=== PATIENT | male | born 1990 | race Caucasian/White ===

== ENCOUNTER 2018-02-14 19:38 | Emergency (ER) | payer SELFPAY ==
[2018-02-14 19:39] VITALS: BMI 28.7
[2018-02-14 19:45] VITALS: TEMP 99.4
[2018-02-14] MEDS ORDERED: Sodium Chloride 0.9% 1,000 ML IV STA (20:10)
--- NOTE | 2018-02-14 20:26 | ED PDOC ---
Arrival/HPI - General Chief Complaint: Flu-like Symptoms Time Seen by Provider: 02/14/18 19:50 Historian: Patient - History of Present Illness Narrative History of Present Illness (Text): 02/14/18 20:20 This is a 27 year old male with no PMH and on no medications presenting to the ER for one year of general malaise and body aches. He also admits to occasional chest palpitations, joint pain, headaches and sore throat that occur most prominently when it rains. He denies fevers, urinary complaints, chills, nausea , vomiting, abdominal pain, recent travel, recent sickness, vision loss and hearing loss. He states he had a negative workup for STD done two months ago. No PMD Symptom Onset: Gradual Symptom Course: Intermittent Activities at Onset: Light Context: Home Past Medical History - Provider Review Nursing Documentation Reviewed: Yes - Past History Past History: No Previous - Infectious Disease Hx of Infectious Diseases: None - Tetanus Immunization Tetanus Immunization: Up to Date - Past Medical History Past Medical History: No Previous - Psychiatric Hx Psychophysiologic Disorder: No Hx Substance Use: No - Past Surgical History Past Surgical History: No Previous Family/Social History - Physician Review Nursing Documentation Reviewed: Yes Family/Social History: Unknown Family HX Smoking Status: Never Smoked Hx Alcohol Use: No Hx Substance Use: No Hx Substance Use Treatment: No Allergies/Home Meds Allergies/Adverse Reactions: Allergies No Known Allergies Allergy (Verified 04/01/16 11:33) Review of Systems - Physician Review All systems were reviewed & negative as marked: Yes - Review of Systems Constitutional: Fatigue. absent: Weight Change, Fevers, Night Sweats Eyes: Normal. absent: Vision Changes ENT: Normal. absent: Hearing Changes Respiratory: Normal. absent: SOB Cardiovascular: Palpitations. absent: Edema, Syncope Gastrointestinal: Normal. absent: Abdominal Pain, Constipation, Diarrhea, Nausea, Vomiting Genitourinary Male: Normal. absent: Dysuria Musculoskeletal: Arthralgias. absent: Joint Swelling, Myalgias Skin: Normal. absent: Rash Neurological: Headache. absent: Dizziness, Focal Weakness, Speech Changes, Disequilibrium Psychiatric: Normal Physical Exam Vital Signs Reviewed: Yes Vital Signs Temp Pulse Resp BP Pulse Ox 02/14/18 22:24 88 18 122/72 100 02/14/18 19:41 99.4 F 94 H 16 118/64 98 Temperature: Afebrile Blood Pressure: Normal Pulse: Regular Respiratory Rate: Normal Appearance: Positive for: Well-Appearing, Non-Toxic, Comfortable Pain Distress: None Mental Status: Positive for: Alert and Oriented X 3 - Systems Exam Head: Present: Atraumatic, Normocephalic Pupils: Present: PERRL Extroacular Muscles: Present: EOMI Conjunctiva: Present: Normal Mouth: Present: Moist Mucous Membranes Neck: Present: Normal Range of Motion Respiratory/Chest: Present: Clear to Auscultation, Good Air Exchange. No: Respiratory Distress, Accessory Muscle Use Cardiovascular: Present: Regular Rate and Rhythm, Normal S1, S2. No: Murmurs Abdomen: Present: Normal Bowel Sounds. No: Tenderness, Distention, Peritoneal Signs, Rebound, Guarding Back: Present: Normal Inspection Upper Extremity: Present: Normal Inspection. No: Cyanosis, Edema Lower Extremity: Present: Normal Inspection. No: Edema Neurological: Present: GCS=15, CN II-XII Intact, Speech Normal, Motor Func Grossly Intact, Normal Sensory Function Skin: Present: Warm, Dry, Normal Color. No: Rashes Psychiatric: Present: Alert, Oriented x 3, Normal Insight, Normal Concentration Medical Decision Making ED Course and Treatment: 02/14/18 20:28 Impression: This is a 27 year old male with no PMH and on no medications presenting to the ER for one year of general malaise and body aches. Differential: anemia vs dehydration vs URI vs atrial fibrillation vs hyperthyroidism hypothyroidism Plan: -EKG -Blood work -Thyroid level -fluids Progress: 02/14/18 20:30 EKG: rate of 91bpm, normal sinus rhythm 02/14/18 22:05 Patient resting comfortably, vitals are stable and afebrile. Patient agrees with discharge and is comfortable to be discharged. - Lab Interpretations Lab Results: 02/14/18 20:20 02/14/18 20:20 Lab Results 02/14/18 20:20: Total T3 1.12, TSH 3rd Generation 0.43 L 02/14/18 20:20: Sodium 139, Potassium 3.9, Chloride 98, Carbon Dioxide 30, Anion Gap 15, BUN 11, Creatinine 1.0, Est GFR ( Amer) > 60, Est GFR (Non- Af Amer) > 60, Random Glucose 93, Calcium 9.5, Total Bilirubin 2.3 H, AST 28, ALT 39, Alkaline Phosphatase 52, Troponin I < 0.01, Total Protein 8.0, Albumin 4.7, Globulin 3.3, Albumin/Globulin Ratio 1.4 02/14/18 20:20: WBC 13.1 H, RBC 5.09, Hgb 15.3, Hct 43.8, MCV 86.1, MCH 30.1, MCHC 34.9, RDW 12.2, Plt Count 143, MPV 11.2 H, Gran % 90.2 H, Lymph % (Auto) 4.5 L, F[place] % (Auto) 4.7, Eos % (Auto) 0.4 L, Baso % (Auto) 0.2, Gran # 11.81 H , Lymph # (Auto) 0.6 L, Fergus # (Auto) 0.6, Eos # (Auto) 0.1, Baso # (Auto) 0.02 , Neutrophils % (Manual) 88 H, Lymphocytes % (Manual) 5 L, Monocytes % (Manual) 6, Eosinophils % (Manual) 1, Platelet Evaluation Normal - Medication Orders Current Medication Orders: Discontinued Medications Sodium Chloride (Sodium Chloride 0.9%) 1,000 mls @ 999 mls/hr IV .Q1H1M STA Stop: 02/14/18 21:10 Last Admin: 02/14/18 20:26 Dose: 999 mls/hr eMAR Start Stop Document 02/14/18 20:26 AD (Rec: 02/14/18 20:26 AD [id number]) Intravenous Solution Start Date 02/14/18 Start Time 20:26 - PA / [employer]ER / Resident Statement [facility] has reviewed & agrees with the documentation as recorded. [facility] has examined the patient and agrees with the treatment plan. Disposition/Present on Arrival - Present on Arrival Any Indicators Present on Arrival: No History of DVT/PE: No History of Uncontrolled Diabetes: No Urinary Catheter: No History of Decub. Ulcer: No History Surgical Site Infection Following: None - Disposition Have Diagnosis and Disposition been Completed?: Yes Diagnosis: Viral syndrome Disposition: HOME/ ROUTINE Disposition Time: 20:00 Condition: GOOD Discharge Instructions (ExitCare): Viral Syndrome (DC) Additional Instructions: [facility], thank you for letting us take care of you today. The emergency medical care you received today was directed at your acute symptoms. If you were prescribed any medication, please fill it and take as directed. It may take several days for your symptoms to resolve. Return to the Emergency Department if your symptoms worsen, do not improve, or if you have any other problems. Please contact your doctor or call one of the physicians/clinics you have been referred to that are listed on the Patient Visit Information form that is included in your discharge packet. Bring any paperwork you were given at discharge with you along with any medications you are taking to your follow up visit. Our treatment cannot replace ongoing medical care by a primary care provider outside of the emergency department. Thank you for allowing the [facility] team to be part of your care today. Follow up with your primary care doctor or our clinic in 2-3 days for re- evaluation and further management. Return to the emergency room if you have any concerns. Prescriptions: Azithromycin [Zithromax] 250 mg PO DAILY #6 tab Referrals: [facility] [Outside] - Follow up with primary Farzana Castro MD [Staff Provider] - Follow up with primary Forms: [facility] (Djiboutian)
[2018-02-14 20:32] LABS: BASO # 0.02 K/mm3 (0.0-2.0); BASO % 0.2 % (0.0-3.0); EOS # 0.1 (0.0-0.7); EOS % 0.4 % (1.5-5.0); GRAN # 11.81 (1.4-6.5); GRAN % 90.2 % (50.0-68.0); HEMOGLOBIN 15.3 g/dL (14.0-18.0); LYMPH # 0.6 (1.2-3.4); LYMPH % 4.5 % (22.0-35.0); MEAN CELL VOLUME 86.1 fl (80.0-105.0); MEAN CORPUSCULAR HEMOGLOBIN 30.1 pg (25.0-35.0); MEAN CORPUSCULAR HGB CONC 34.9 g/dl (31.0-37.0); MEAN PLATELET VOLUME 11.2 fl (7.0-11.0); MONO # 0.6 (0.1-0.6); MONO % 4.7 % (1.0-6.0); PLATELET COUNT 143 10^3/uL (120.0-450.0); RBC 5.09 10^6/uL (3.5-6.1); RED CELL DISTRIBUTION WIDTH 12.2 % (11.5-14.5); WHITE BLOOD COUNT 13.1 10^3/ul (4.5-11.0)
[2018-02-14 20:47] LABS: ALB/GLOB RATIO 1.4 (1.1-1.8); ALBUMIN 4.7 g/dL (3.0-4.8); ALT/SGPT 39 U/L (7-56); AST/SGOT 28 U/L (17-59); BLOOD UREA NITROGEN 11 mg/dL (7-21); CALCIUM 9.5 mg/dL (8.4-10.5); GFR AFRICAN-AMERICAN > 60; GFR NON-AFRICAN AMERICAN > 60
[2018-02-14 21:18] LABS: EOSINOPHIL 1 % (0.0-3.0); LYMPHOCYTE 5 % (22.0-35.0); MONOCYTE 6 % (1.0-6.0); NEUTROPHIL 88 % (50.0-70.0); PLATELET ESTIMATE NORMAL (NORMAL); T3 1.12 ng/mL (0.97-1.69)
[2018-02-14 21:45] LABS: TROPONIN I < 0.01 ng/mL
[2018-02-14 22:26] VITALS: BP 122/72; PULSE 88; RESP 18; O2SAT 100
--- NOTE | 2018-02-15 09:21 | CARD ---
APPROVED REPORT Date of service: 02/14/2018 EKG Measurement Heart [id number] <Conclusion> Normal sinus rhythm Nonspecific T wave abnormality Abnormal ECG
== END 2018-02-14 22:25 | disposition home or self-care (01) ==
LOC: ED 19:38
DX: B34.9 Viral infection, unspecified (principal)
CPT/HCPCS: 80053; 84443; 84480; 84484; 85025; 93005; 99283; J7030